=== PATIENT | female | born 1955 | race Asian ===

== ENCOUNTER 2016-11-10 20:17 | Emergency (ER) | payer OTHER ==
[~2016-11-10] VITALS: Ht 154.9 cm; Wt 49.9 kg
[~2016-11-10 20:17] MED LIST: NKM; NORCO 5-325 TA1 EACH ORAL; PHENERGAN25 M1 ORAL; TYLENOL WITH C1 EACH ORAL
[2016-11-10 20:30] VITALS: BP 158/79
[2016-11-10] MEDS ORDERED: Morgan Lens TOPIC ONE (20:30)
[2016-11-10] MEDS ORDERED: Silver Sulfadiazine Cream 25gm TOPIC ONE (20:30)
[2016-11-10 21:25] LABS: BASOPHILS % (AUTO) 1.2 % (0.0-2.0); EOSINOPHILS % (AUTO) 0.9 % (0.0-3.0); LYMPHOCYTES % (AUTO) 34.6 % (20.0-45.0); MEAN CORPUSCULAR HEMOGLOBIN 31.5 PG (27.0-31.0); MEAN CORPUSCULAR VOLUME 95 FL (80-99); MEAN PLATELET VOLUME 5.3 FL (6.5-10.1); MONOCYTES % (AUTO) 7.1 % (1.0-10.0); NEUTROPHILS % (AUTO) 56.3 % (45.0-75.0); PLATELET COUNT 301 K/UL (150-450); RED BLOOD COUNT 4.03 M/UL (4.20-5.40); RED CELL DISTRIBUTION WIDTH 11.6 % (11.6-14.8); WHITE BLOOD COUNT 6.6 K/UL (4.8-10.8)
[2016-11-10 21:33] LABS: APPEARANCE,URINE CLEAR
[2016-11-10 21:34] LABS: KETONES,URINE NEGATIVE (NEGATIVE); LEUKOCYTE ESTERASE ,URINE NEGATIVE (NEGATIVE); NITRITE,URINE NEGATIVE (NEGATIVE); PH,URINE 8 (4.5-8.0); PROTEIN,URINE NEGATIVE (NEGATIVE); UROBILINOGEN,URINE NORMAL MG/DL (0.0-1.0)
[2016-11-10 21:40] LABS: RBC,URINE 0-2 /HPF (0 - 2)
[2016-11-10 21:41] LABS: BACTERIA,URINE MANY /HPF; SQUAMOUS EPITHELIAL CELL,UR OCCASIONAL /LPF (NONE/OCC); WBC,URINE 0-2 /HPF (0 - 2)
[2016-11-10 21:42] LABS: AMORPHOUS SEDIMENT,UR MANY /LPF
[2016-11-10 21:57] LABS: ALANINE AMINOTRANSFERASE 13 U/L (3-33); ALBUMIN/GLOBULIN RATIO 1.6 (1.0-2.7); ANION GAP 17 (5-15); ASPARTATE AMINO TRANSFERASE 20 U/L (5-40); CALCIUM 8.1 mg/dL (8.6-10.2); CARBON DIOXIDE 21 mEQ/L (20-30); CHLORIDE 105 mEQ/L (98-107); CREATININE 0.5 mg/dL (0.5-0.9); GLOMERULAR FILTRATION RATE > 60 mL/min (>60); HEMOLYSIS 26; POTASSIUM 3.6 mEQ/L (3.4-4.9); SODIUM 143 mEQ/L (135-145); TOTAL PROTEIN 5.9 g/dL (6.6-8.7)
[2016-11-10] MEDS ORDERED: TdaP Vaccine 0.5ml Syr IM ONE (22:00)
[2016-11-10 23:04] VITALS: BP 150/79
[2016-11-10 23:35] VITALS: BP 158/88
[2016-11-10] MEDS ORDERED: OCUFLOX5 ML BOTH EYES (23:47)
[2016-11-10] MEDS ORDERED: NORCO 5-325 TA1 EACH ORAL (23:47)
[2016-11-10] MEDS ORDERED: SILVADENE20 GM TP (23:47)
[2016-11-11 00:20] VITALS: BP 138/71
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
== END 2016-11-11 00:20 | disposition home or self-care (01) ==
LOC: EDBD 20:17 → EMR 20:29
DX: T20.26XA Burn of second degree of forehead and cheek, initial encounter (principal); T31.0 Burns involving less than 10% of body surface; S05.8X1A Other injuries of right eye and orbit, initial encounter; X10.1XXA Contact with hot food, initial encounter; Y93.G3 Activity, cooking and baking; Y92.9 Unspecified place or not applicable; Z23 Encounter for immunization
CPT/HCPCS: 36415; 65205; 80053; 81003; 85025; 87086; 90471; 90715; 96361; 96374